=== PATIENT | female | born 1955 | race Caucasian/White ===

== ENCOUNTER 2019-02-06 06:23 | Inpatient (IN) ==
--- NOTE | 2018-12-29 12:49 | PAT Medication Instructions ---
Medication Instructions Date of Service December 29, 2018 Home Medications diclofenac sodium 50 mg PO BID ASK your surgeon for instructions diclofenac sodium 50 mg PO BID Other Notes If you have any questions please call us at [phone] or [phone] or [phone] or [phone]
--- NOTE | 2018-12-29 13:39 | Anesthesiology Consultation ---
Date of Service December 29, 2018 Assessment & Plan (1) Encounter for pre-operative examination: Chart Review Chart Review: Acceptable Risk for Surgery and Patient seen in Pre Admission Testing Teaching & Discussion Instructed NPO after midnight before surgery, except medications with 15 cc of water. Medication instructions provided according to the PAT guidelines. History Surgery Operation Date: 02/06/19 10:40 Proposed Procedures p Left Total Hip Replacement - Henry Ayala MD Height/Weight Height: 5 ft 6 in Weight: 80.9 kg Allergies Allergy/AdvReac Type Severity Reaction Status Date / Time Penicillins Allergy Severe SHORTNESS Unverified 12/26/18 12:43 OF BREATH/HIVES Medications Home Medications Medication Instructions Recorded Confirmed Last Taken diclofenac sodium 50 mg PO BID 12/26/18 12/26/18 Unknown Past Medical History Medical History Emphysema of lung Suggested on CXR 12/29/18 Osteoarthritis Exercise / Class Metabolic Activity II 4-5 Yardwork/Stairs/Walk up hill (NO CP OR SOB WITH 1 FOS) Past Family History Family History Father Family history of diabetes mellitus Past Surgical History Surgical History History of bilateral tubal ligation History of cholecystectomy History of colonoscopy History of open reduction and internal fixation (ORIF) procedure LEFT ANKLE History of total hip arthroplasty RIGHT Past Anesthesia History No Hx of Anesthesia Complications and No Family Hx of Anesthesia Complications History of PONV No Hx of PONV and No Hx of Motion Sickness Social History Smoking Status: Current every day smoker tobacco type: cigarettes Smoking cigarettes per day: 10 Do You Dip or Chew Tobacco: No Hx Alcohol Use: Yes Alcohol type: beer alcohol intake frequency: a few times a month Hx Substance Use: Yes substance use type: marijuana (VERY OCCASIONAL FOR PAIN, advised none within 24hrs of surgery) Review of Systems Pt denies any recent chest pain, shortness of breath, palpitations, cough, fever or URI. Physical Exam Vital Signs BP: 136/85 P: 82bpm SPO2: 94% RA T: 98.4 F R: 16 ENMT Mouth: no dental restorations, no chipped teeth and no loose teeth Thyromental Distance: < 3.5 Finger Breadths (2.5) Mallampati Class: IV Neck + shortened thyromental distance; neck extension not limited Respiratory normal respiratory effort Auscultation: lungs clear to auscultation bilaterally Cardiovascular Rate/Rhythm: regular rate and regular rhythm Heart Sounds: no murmur Vessels: no carotid bruit Extremities: no edema Testing Laboratory Results 12/29/18 13:43 12/29/18 13:43 PT 9.6 Seconds (9.0-12.0) 12/29/18 13:43 INR 0.9 (0.9-1.1) 12/29/18 13:43 APTT 24.9 Seconds (21.0-31.0) 12/29/18 13:43 Blood Type B Positive 12/29/18 13:43 Antibody Screen NEGATIVE 12/29/18 13:43 Electrocardiogram Date: 12/29/18 Findings: + NSR @ (74) Chest X-Ray Date: 12/29/18 IMPRESSION: 1. Findings suggest emphysema or other obstructive lung disease. 2. Bibasilar atelectasis or scarring.
--- NOTE | 2018-12-29 14:20 | XRay Report ---
XR chest Pre-admission PA/Lat CLINICAL HISTORY: 63 years-old Female presenting with preoperative assessment. TECHNIQUE: PA and lateral views of the chest were obtained. COMPARISON: 10/24/2012. FINDINGS: Atherosclerosis of the aortic arch. Cardiac silhouette borderline enlarged. Coarsening of lung markin gs. Lungs are hyperinflated. Bandlike opacities at the lung bases. No pleural effusion or pneumothora x. Osseous structures normal. Upper abdomen normal. IMPRESSION: 1. Findings suggest emphysema or other obstructive lung disease. 2. Bibasilar atelectasis or scarring. Electronically signed by: Omar Joaquin M.D. 12/29/2018 2:19 PM
[2018-12-29 15:39] LABS: Basophils % (auto) 0.9 %; Eosinophils # (auto) 0.28 K/uL (0-0.5); Eosinophils % (auto) 2.6 %; Hematocrit (blood only) 44.3 % (37-47); Hemoglobin 14.9 g/dL (12.0-16.0); Immature Granulocytes # (auto) 0.07 K/uL (0.00-0.02); Immature Granulocytes % (auto) 0.6 %; Lymphocytes # (auto) 3.18 K/uL (1.2-3.4); Lymphocytes % (auto) 29.1 %; Mean Corpuscular Hemoglobin 29.7 pg (25-34); Mean Corpuscular Hgb Conc 33.6 g/dL (32-36); Mean Corpuscular Volume 88.2 fL (80-100); Mean Platelet Volume 11.6 fL (7.4-10.4); Monocytes # (auto) 0.67 K/uL (0.11-0.59); Monocytes % (auto) 6.1 %; Neutrophils # (auto) 6.61 K/uL (1.4-6.5); Neutrophils % (auto) 60.7 %; Platelet Count 253 K/uL (130-400); RDW Coefficient of Variation 13.7 % (11.5-14.5); RDW Standard Deviation 44.3 fL (36.4-46.3); Red Blood Count 5.02 M/uL (4.2-5.4); White Blood Count 10.91 K/uL (4.8-10.8)
[2018-12-29 15:47] LABS: BUN Creatinine Ratio 15.8 (10-20); C Reactive Protein 0.71 mg/dl (0-0.29); Calcium 8.9 mg/dl (8.5-10.1); Creatinine Clr Calc Pharmacy 96.5 ml/min; Est GFR (African American) 110.1; Potassium 4.1 mmol/L (3.5-5.1)
[2018-12-29 15:53] LABS: INR 0.9 (0.9-1.1); Partial Thromboplastin Ratio 0.9; Partial Thromboplastin Time 24.9 Seconds (21.0-31.0); Prothrombin Time 9.6 Seconds (9.0-12.0)
--- NOTE | 2019-02-01 15:05 | History and Physical Report ---
DATE OF ADMISSION: 02/06/2019 CHIEF COMPLAINT: Left hip pain. HISTORY OF PRESENT ILLNESS: A 63-year-old white female well known to me from previous right hip replacement done 7 years ago. She has done well from this side. She now presents for treatment of her left hip. She has had left hip pain and thigh pain that radiates down into her knee. It started to bother her a couple of years ago, but it has gradually gotten worse particularly over the past year. She has developed a limited ability to walk any distance. She has difficulty going up and down stairs. She has nighttime pain. She takes NSAIDs as well as Tylenol with minimal relief. She now would like to have her left hip fixed. PAST MEDICAL HISTORY: Significant for: 1. Neck arthritis. 2. History of hepatitis in the past. PAST SURGICAL HISTORY: Right hip replacement on 09/18/2011. ALLERGIES: PENICILLIN. CURRENT MEDICATIONS: Include: 1. Tylenol. 2. Various anti-inflammatory medicines. SOCIAL HISTORY: A 63-year-old female. She is from [place]. Smokes a pack of cigarettes a day. Couple drinks of alcohol per week. FAMILY HISTORY: Noncontributory. REVIEW OF HISTORY: Negative for diabetes, neurologic problem, vascular problems, bleeding disorders. Denies any chest pain or shortness of breath. No history of DVT or PE. No bleeding problems. PHYSICAL EXAMINATION: GENERAL: Reveals a healthy, pleasant middle-aged female. Looks to be in pretty good health. HEENT: Benign. NECK: Supple, no lymphadenopathy. LUNGS: Clear to auscultation. HEART: Regular rate and rhythm. ABDOMEN: Soft, nontender, nondistended. EXTREMITIES: Grossly neurovascularly intact except as follows: Examination of the left hip reveals the patient walks with a slight bit of a limp. Leg lengths clinically appear pretty equal. She does have pain with any type of hip motion. I can internally rotate to neutral, external rotation to 25 degrees. No knee effusion. She is neurologically intact. Negative straight leg raise. X-RAYS: X-rays of left hip were reviewed. It shows advanced left hip DJD. She has complete loss of her joint space. She has got cystic changes on both sides of the hip. Right hip replacement looks to be in good position. ASSESSMENT: A 63-year-old white female, 7 years out from a right hip replacement, with advanced left hip degenerative joint disease. She would like to proceed with left hip replacement. PLAN: We will take her to the operating room and do a left total hip replacement. The risks and benefits of this procedure were explained to the patient including but not limited to DVT, PE, , infection, neurological injury, vascular injury, bleeding problem, pain, limited range of motion, stiffness, failure to relieve her symptoms, incomplete relief of symptoms, need for further surgery in the future, fracture, leg length inequality, nerve palsy, etc. The patient understands and desires to proceed. Informed consent was obtained. The patient does smoke and will likely need a nicotine patch in the hospital. She has a significant other who will stay with her during her recovery.
[~2019-02-06 06:23] MED LIST: ACETAMINOPHEN 500 MG TAB PO SCH; FAMOTIDINE 20 MG TAB PO SCH; GABAPENTIN 600 MG DOSE PO SCH; LR 500ML BOLUS, THEN 15ML/HR IV SCH; LR 60ML/HR IV SCH; METOCLOPRAMIDE HCL 10 MG TABLET PO SCH; SCOPOLAMINE 1.5 MG TDSY TD SCH; TRANEXAMIC ACID 1,000 MG **IV Pre-op IV SCH
[2019-02-06] MEDS ORDERED: BUPIVACAINE 0.5 % 5 MG/1 ML PF 10ML VIAL ONE (06:30)
--- NOTE | 2019-02-06 06:53 | History & Physical Bridge Note ---
Date of Service February 06, 2019 History & Physical Bridge Note I have examined the patient, reviewed the History & Physical and in the interval since the performance of the History & Physical I have noted the following changes of clinical significance: no changes noted
[2019-02-06] MEDS ORDERED: MIDAZOLAM HCL 1 MG/ML 2ML VIAL ONE (07:19)
[2019-02-06] MEDS ORDERED: PROPOFOL IV EMULSION 10 MG/ML 20 ML VIAL IV ONE ×2 (07:19→09:11)
[2019-02-06] MEDS ORDERED: MoRPHine SULFATE PF 1 MG/ML 10 ML AMP/VIAL ONE (07:20)
[2019-02-06] MEDS ORDERED: fentaNYL citrate 100 MCG/2 ML VIAL IV PRN (08:04)
[2019-02-06] MEDS ORDERED: ATROPINE SULFATE 0.1 MG/ML 10ML SYR IV PRN (08:04)
[2019-02-06] MEDS ORDERED: MoRPHine SULFATE 10 MG/ML CARP/VIAL IV PRN (08:04)
[2019-02-06] MEDS ORDERED: ONDANSETRON INJ 2 MG/ML 2 ML VIAL IV PRN ×2 (08:04→10:52)
[2019-02-06] MEDS ORDERED: ePHEDrine sulfate 50 MG/ML AMP IV PRN ×2 (08:04→10:52)
[2019-02-06] MEDS ORDERED: BACITRACIN INJ 50,000 UNIT VIAL ONE (08:28)
[2019-02-06] MEDS ORDERED: BUPIVACAINE/EPINEPHRINE 0.5% MPF 1:200,000 30 ML VIAL ONE (08:28)
[2019-02-06] MEDS ORDERED: fentaNYL citrate 100 MCG/2 ML VIAL ONE (08:52)
[2019-02-06] MEDS ORDERED: KETAMINE HCL INJ 50 MG/ML 10 ML VIAL ONE (09:12)
--- NOTE | 2019-02-06 10:17 | Post Operative Brief Note ---
PG Immediate Post Op with CF Date of Surgery February 06, 2019 Pre & Post Diagnosis Operation Date: 02/06/19 08:50 Pre-Op Diagnosis: Left Hip Advanced Degenerative Joint Disease Post-Op Diagnosis: Left Hip Advanced Degenerative Joint Disease Procedure Operation Date: 02/06/19 08:50 Actual Procedures p Left Total Hip Arthroplasty--Uncemented(Left) - Henry Ayala MD Surgeon Henry Ayala MD Vice President [employer] [facility], PAC Estimated Blood Loss 200 Findings Consistent with Post-Op Diagnosis Fluids 600 cc Specimens Specimen Description: A. Left femoral head. Drains Renner Catheter (A 16 [place] renner catheter was inserted by Amy Hendricks RN, without difficulty, clear yellow urine obtained, output to be monitored by Anesthesia.) Anesthesia Type Spinal MAC Disposition Accompanied Patient To Recovery: Yes Disposition: Recovery Room
--- NOTE | 2019-02-06 10:40 | Operative Report ---
DATE OF OPERATION: 02/06/2019 SURGEON: Henry Ayala MD WEATHERIZATION OPERATIONS MANAGER: ABDULKADIR Zamudio PREOPERATIVE DIAGNOSIS: Left hip degenerative joint disease. POSTOPERATIVE DIAGNOSIS: Left hip degenerative joint disease. PROCEDURE PERFORMED: Left uncemented ceramic on highly cross-linked polyethylene total hip arthroplasty. COMPLICATIONS: None. ESTIMATED BLOOD LOSS: 100 mL. FLUID REPLACEMENT: 600 mL of fluid replacement. ANESTHESIA: Spinal. DRAINS: None. SPECIMENS: Left femoral head sent for pathology. OPERATIVE INDICATIONS: The patient is a 63-year-old female who has had a long history of hip problems. She underwent a right hip replacement about 7 years ago and has done well from this. Over the past several years, she developed increased pain and discomfort in her left hip. She failed conservative care. X-rays show advanced hip arthritis. She elected to proceed with surgical treatment. FINDINGS: Operative findings revealed advanced left hip DJD. She had extensive grade 4 changes of the femoral head and acetabulum. Moderate size joint effusion. Some moderate synovitis. OPERATIVE IMPLANTS: Operative implants consisted of: 1. Biomet G7 size 50 mm acetabular shell. 2. A 6.5 cancellous acetabular screws, 1 at 35 mm length and 1 at 20 mm length. 3. An apex hole eliminator. 4. The highly cross-linked polyethylene liner with a 50 mm outer diameter and 32 mm inner diameter. 5. DePuy Corail size 9 KLA short neck femoral component. 6. A +5/32 mm ceramic articular ball. OPERATIVE PROCEDURE: The patient was taken to the operating room, identified and placed on the operating table in supine position. All contact areas were appropriately padded. IV antibiotics provided by anesthesia team. A spinal anesthetic had been implemented in the holding area. Arce catheter was placed in sterile fashion. The patient was then placed in the right lateral decubitus position. An axillary roll was placed. Stlberg hip positioner was used for positioning. The left hip and leg were then prepped and draped in usual sterile fashion. A posterolateral approach to the left hip was then performed through a curvilinear incision centered over the greater trochanter. Sharp dissection was carried through subcutaneous tissues down to the level of the IT band and gluteal fascia. The IT band and gluteal fascia were incised longitudinally in line with skin incision. The underlying greater trochanteric bursa was excised. The piriformis and external rotators were then tagged and taken off the posterior aspect of the hip joint capsule. Great care was taken throughout the procedure to protect the sciatic nerve at all times. Posterior capsulotomy was then performed leaving a large flap for later repair. Hip was internally rotated and dislocated. Femoral neck osteotomy cut was made with the final cut about 10 mm above the lesser trochanter. Femoral head was removed and sent for pathology. The femur was retracted anteriorly. Attention was then drawn to the acetabulum. The acetabulum labrum was excised. The pulvinar fat was excised. Sequential reaming of the acetabulum was then performed beginning with a size 43 and progressing up to 49. A 50 mm Biomet G7 acetabular shell was then placed in about 40 degrees of lateral opening and 20 degrees of anteversion. It was fixed with two 6.5 cancellous acetabular screws. A trial liner was placed. Some anterior osteophytes removed. Attention was then drawn to the femur. The proximal femur was entered with Bitmenu cutter followed by canal finder. I broached beginning with a size 8 and progressed to a 9. She had pretty good fit at a 9. We used a calcar reamer to smooth off the calcar. I then trialed the hip and the short neck seemed to be most appropriate. She had a fairly short neck with a valgus alignment preoperatively. We trialed the hip and the hip was fully stable in full extension and external rotation and flexion to 90 degrees, internal rotation to over 60 degrees. We did increase our offset slightly but took great care to try and avoid any increase in leg length. We elected to place these implants. All trial implants were removed. An apex hole eliminator was placed. Highly cross-linked polyethylene liner was placed. A DePuy Corail size 9 KLA short neck femoral stem was impacted in position. A +5/32 mm ceramic articular ball was placed. Hip was located and once again found to be stable. Attention was then drawn toward closing. The wound was irrigated with copious amounts of pulsatile lavage solution. I did inject locally with 60 mL of 0.5% Marcaine with epinephrine. Posterior capsule and external rotators were then repaired through drill holes in the posterior trochanter with #2 Ti-Cron suture. The IT band and gluteal fascia were then closed with #1 PDS suture in running fashion. Subcutaneous tissue was then closed in 2 layers with deep layer #1 Vicryl suture and subcutaneous tissues with 2-0 Dexon suture in a buried interrupted fashion. Skin was closed with skin salvador. Leg was then cleaned, dried and a sterile dressing of Xeroform, 4 x 4, sterile ABD pad and foam tape was applied. The patient then transferred to the recovery room in stable condition. The patient tolerated the procedure well with no complication. All needle and sponge counts were correct at the end of the operation. I attest to the content of the Intraoperative Record and any orders documented therein. Any exception s are noted below.
[2019-02-06] MEDS ORDERED: NALBUPHINE HCL INJ 10 MG/ML AMP IV PRN (10:52)
[2019-02-06] MEDS ORDERED: NALOXONE HCL 0.08 MG in SYRINGE 1.8 ML IV PRN (10:52)
[2019-02-06] MEDS ORDERED: LACTATED RINGER'S 500 ML IV PRN (10:52)
[2019-02-06] MEDS ORDERED: NALOXONE HCL 1 MG in SODIUM CHLORIDE 0.9% 1000ML 1,000 ML IV PRN (10:52)
[2019-02-06] MEDS ORDERED: MoRPHine SULFATE PF 1 MG/ML 10 ML AMP/VIAL INT SPINAL ONE (10:52)
[2019-02-06] MEDS ORDERED: DiphenhydrAMINE HCL 50 MG/ML VIAL IV PRN (10:52)
[2019-02-06] MEDS ORDERED: NALOXONE HCL 0.4 MG/1 ML VIAL/CARP IV PRN ×2 (10:52→11:25)
--- NOTE | 2019-02-06 10:52 | Anesthesiology Progress Note ---
Date of Service February 06, 2019 Anesthesia Post Procedure Vital Signs Vital Signs: Temp Pulse Pulse Resp BP Pulse Ox 02/06/19 10:45 81 14 118/70 95 02/06/19 10:35 85 14 136/82 97 02/06/19 10:25 87 14 149/92 H 99 02/06/19 10:18 36.6 C 96 H 14 146/85 H 96 02/06/19 06:45 37.1 C 85 20 144/88 H 94 Pain Intensity Left Hip: Pain Intensity: 0 Transfer of Care Handoff Completed per policy Notes Mental Status: alert / awake / arousable and participated in evaluation Patient Amnestic to Procedure: Yes Nausea / Vomiting: adequately controlled Pain: adequately controlled Airway Patency, RR, SpO2: stable & adequate BP & HR: stable & adequate Hydration State: stable & adequate Neuraxial Anesthesia: was administered and sensory block is resolving Anesthetic Complications: no major complications apparent and Pt Satisfied with anesthetic care
[2019-02-06] MEDS ORDERED: DC INTRASPINAL MORPHINE SCH (11:00)
[2019-02-06] MEDS ORDERED: SODIUM CHLORIDE 0.9% 1000ML 1,000 ML IV SCH (11:00)
[2019-02-06] MEDS ORDERED: NO NARCOTICS OR SEDATIVES SCH (11:00)
--- NOTE | 2019-02-06 11:02 | XRay Report ---
XR hip 1V LT w pelvis CLINICAL HISTORY: Postop hip arthroplasty COMPARISON: 11/21/2012 DISCUSSION: There is no change in the appearance of a total right hip arthroplasty. Now evident is a total left hip arthroplasty. The acetabular and femoral components appear well seated. There are no a cute fractures. There is gas present the soft tissues consistent with recent surgery. There are overl mell skin salvador. IMPRESSION: Postsurgical changes of a total left hip arthroplasty. Electronically signed by: Simon Tam M.D. 02/06/2019 11:01 AM
[2019-02-06] MEDS ORDERED: ALUMINUM/MAGNESIUM SUSP 30 ML UDC PO PRN (11:25)
[2019-02-06] MEDS ORDERED: MAGNESIUM HYDROXIDE SUSP 30 ML UDC PO PRN (11:25)
[2019-02-06] MEDS ORDERED: METOCLOPRAMIDE HCL INJ 5 MG/ML 2 ML VIAL IV PRN (11:25)
[2019-02-06] MEDS ORDERED: BISACODYL 10 MG SUPP PR PRN (11:25)
--- NOTE | 2019-02-06 12:51 | Progress Note ---
DATE: 02/06/2019 SUBJECTIVE: A 63-year-old female postop from a left hip replacement. She is doing well. Not having any pain yet. Just getting the function back in her legs. No chest pain or shortness of breath. Not feeling dizzy or lightheaded. OBJECTIVE: VITAL SIGNS: Temperature 36.4. Vital signs stable. GENERAL: Shows a pleasant, middle-aged female. She is sitting up in bed and talking to a friend. LUNGS: Clear to auscultation. HEART: Regular rate and rhythm. ABDOMEN: Soft, nontender, nondistended. EXTREMITIES: Grossly neurovascularly intact except as follows: Examination of left lower extremity reveals the leg lengths to be equal. Hip is located. Dressing is clean, dry and intact. She can dorsiflex and plantarflex her foot appropriately. She is neurologically intact. X-RAYS: X-rays of the left hip from recovery room reviewed. It shows left uncemented total hip replacement. Components looked to be in good position. No signs of problems. ASSESSMENT: A 63-year-old female postop from a left hip replacement, doing well. Pain is controlled. Hip is located. She is neurologically intact. PLAN: 1. DVT prophylaxis including thigh-high TEDs, SCDs, and aspirin twice a day. 2. PT/OT. Weight bear as tolerated. Left total hip protocol. 3. Pain control, doing well with current pain regimen. 4. IV antibiotics x24 hours. 5. Disposition: Plan to discharge to home likely with home health once adequately recovered.
[2019-02-06] MEDS: ACETAMINOPHEN 500 MG TAB PO SCH ×2 (13:52→22:02)
[2019-02-06] MEDS: SODIUM CHLORIDE 0.9% 1000ML 1,000 ML IV SCH ×2 (13:53→22:02)
[2019-02-06] MEDS: CEFAZOLIN 1000MG 1,000 MG/7.5 ML SYR IV SCH ×2 (15:29→22:02)
[2019-02-06] MEDS: CHECK SCOPOLAMINE PATCH PLACEMENT SCH ×2 (15:29→23:01)
[2019-02-06] MEDS ORDERED: TRANEXAMIC ACID 1,000 MG in 0.9 % SODIUM CHLORIDE 100 ML IV SCH (16:18)
[2019-02-06] MEDS: KETOROLAC 30 MG/ML VIAL IV PRN (17:13)
[2019-02-06] MEDS: ASCORBIC ACID 500 MG TAB PO SCH (18:42)
[2019-02-06] MEDS: FERROUS GLUCONATE 324 MG TAB PO SCH (18:42)
[2019-02-06] MEDS: ASPIRIN 81 MG ECTAB PO SCH (19:53)
[2019-02-06] MEDS: SENNA 8.6 MG TAB PO SCH (19:53)
[2019-02-06] MEDS: DOCUSATE SODIUM 100 MG CAP PO SCH (19:53)
[2019-02-07] MEDS: KETOROLAC 30 MG/ML VIAL IV PRN (03:16)
[2019-02-07] MEDS ORDERED: ONDANSETRON INJ 2 MG/ML 2 ML VIAL IV PRN (04:52)
[2019-02-07] MEDS ORDERED: HYDROmorphone INJ 0.5 MG/0.5 ML SYR IV PRN (04:52)
[2019-02-07] MEDS: ACETAMINOPHEN 500 MG TAB PO SCH ×3 (05:24→21:17)
[2019-02-07 06:17] LABS: Basophils # (auto) 0.04 K/uL (0-0.2); Basophils % (auto) 0.4 %; Eosinophils # (auto) 0.09 K/uL (0-0.5); Eosinophils % (auto) 0.8 %; Hematocrit (blood only) 35.4 % (37-47); Hemoglobin 11.5 g/dL (12.0-16.0); Immature Granulocytes # (auto) 0.05 K/uL (0.00-0.02); Immature Granulocytes % (auto) 0.5 %; Lymphocytes # (auto) 1.79 K/uL (1.2-3.4); Lymphocytes % (auto) 16.4 %; Mean Corpuscular Hemoglobin 28.8 pg (25-34); Mean Corpuscular Hgb Conc 32.5 g/dL (32-36); Mean Corpuscular Volume 88.7 fL (80-100); Mean Platelet Volume 11.4 fL (7.4-10.4); Monocytes # (auto) 1.21 K/uL (0.11-0.59); Monocytes % (auto) 11.1 %; Neutrophils # (auto) 7.74 K/uL (1.4-6.5); Neutrophils % (auto) 70.8 %; Platelet Count 206 K/uL (130-400); RDW Coefficient of Variation 13.3 % (11.5-14.5); RDW Standard Deviation 43.3 fL (36.4-46.3); Red Blood Count 3.99 M/uL (4.2-5.4); White Blood Count 10.92 K/uL (4.8-10.8)
[2019-02-07 06:58] LABS: BUN Creatinine Ratio 14.7 (10-20); Calcium 7.8 mg/dl (8.5-10.1); Creatinine Clr Calc Pharmacy 101.7 ml/min; Est GFR (African American) 110.6; Est GFR (Non-African American) 95.5; Potassium 3.9 mmol/L (3.5-5.1)
--- NOTE | 2019-02-07 08:15 | Progress Note ---
DATE: 02/07/2019 SUBJECTIVE: A 63-year-old white female postop day 1 from left total hip replacement. She is doing pretty well. Pain is controlled. No chest pain or shortness of breath. Not feeling dizzy or lightheaded. OBJECTIVE: VITAL SIGNS: Temperature 37.2. Vital signs stable. GENERAL: Shows a pleasant, middle-aged female. She is lying in bed, looks pretty comfortable. EXTREMITIES: Examination of the left hip and leg reveals leg lengths to be equal. Hip is located. Dressing is clean, dry and intact. Thigh is soft and supple. She is neurologically intact. LABORATORY DATA: Hemoglobin is 11.5, hematocrit 35.4. Electrolytes are stable. ASSESSMENT: A 63-year-old female postoperative day 1 from left hip replacement, doing pretty well. Pain is controlled. Hip is located. She is neurologically intact. PLAN: 1. DVT prophylaxis including thigh-high TEDs, SCDs, and aspirin twice a day. 2. PT/OT. Weight bear as tolerated. Left total hip protocol. 3. Pain control, doing well with current pain regimen. 4. Disposition: Plan to discharge to home with some home health once adequately recovered.
[2019-02-07] MEDS: FERROUS GLUCONATE 324 MG TAB PO SCH ×2 (08:34→17:51)
[2019-02-07] MEDS: ASCORBIC ACID 500 MG TAB PO SCH ×2 (08:35→17:51)
[2019-02-07] MEDS: DOCUSATE SODIUM 100 MG CAP PO SCH ×2 (08:35→21:18)
[2019-02-07] MEDS: ASPIRIN 81 MG ECTAB PO SCH ×2 (08:35→21:17)
[2019-02-07] MEDS: MULTIVITAMIN TAB PO SCH (08:36)
[2019-02-07] MEDS: NICOTINE 14 MG/24 HR PATCH TD SCH (08:36)
[2019-02-07] MEDS: KETOROLAC 30 MG/ML VIAL IV SCH ×3 (10:16→21:18)
[2019-02-07] MEDS: TRAMADOL HCL 50 MG TABLET PO PRN ×2 (14:14→19:33)
[2019-02-07] MEDS: SENNA 8.6 MG TAB PO SCH (21:18)
[2019-02-08] MEDS: TRAMADOL HCL 50 MG TABLET PO PRN (03:19)
[2019-02-08] MEDS: KETOROLAC 30 MG/ML VIAL IV SCH ×2 (03:20→09:27)
[2019-02-08] MEDS: ACETAMINOPHEN 500 MG TAB PO SCH (05:31)
--- NOTE | 2019-02-08 08:17 | Progress Note ---
DATE: 02/08/2019 SUBJECTIVE: A 63-year-old white female postop day 2 from a left hip replacement. She is doing pretty well. Pain is controlled. No chest pain or shortness of breath. Not feeling dizzy or lightheaded. OBJECTIVE: VITAL SIGNS: Temperature 36.7. Vital signs stable. GENERAL: Shows a pleasant, middle-aged female. She is lying in bed, looks comfortable. EXTREMITIES: Examination of the left hip reveals the incision to be clean, dry and intact. Leg lengths were equal. Hip is located. She is neurologically intact. ASSESSMENT: A 63-year-old white female postoperative day 2 from a left hip replacement, doing well. Pain is controlled. Hip is located. She is neurologically intact. PLAN: 1. DVT prophylaxis including thigh-high TEDs, SCDs, and aspirin twice a day. 2. PT/OT. Weight bear as tolerated. Left total hip protocol. 3. Pain control, doing well with current pain regimen. 4. Disposition: Plan to discharge to home with some home health later today.
[2019-02-08] MEDS: FERROUS GLUCONATE 324 MG TAB PO SCH (08:45)
[2019-02-08] MEDS: MULTIVITAMIN TAB PO SCH (08:45)
[2019-02-08] MEDS: ASPIRIN 81 MG ECTAB PO SCH (08:46)
[2019-02-08] MEDS: ASCORBIC ACID 500 MG TAB PO SCH (08:46)
[2019-02-08] MEDS: DOCUSATE SODIUM 100 MG CAP PO SCH (08:46)
[2019-02-08] MEDS: NICOTINE 14 MG/24 HR PATCH TD SCH (08:46)
--- NOTE | 2019-02-11 12:57 | Discharge Summary ---
ADMITTING PHYSICIAN AND SURGEON: Dr. Henry Ayala. ADMITTING DIAGNOSIS: Left hip degenerative joint disease. SURGERY PERFORMED: Left total hip arthroplasty. SECONDARY DIAGNOSES: Neck arthritis and history of hepatitis. CONSULTS: None obtained. HISTORY AND PHYSICAL EXAMINATION: Well documented in the patient's chart. HOSPITAL COURSE: The patient was admitted on 02/06/2019 underwent a total hip arthroplasty, tolerated the procedure well. There were no complications. She was transferred to the PACU postoperatively and later to the orthopedic floor for further care. She was given Ancef for antibiotic prophylaxis, MARYLU stockings, SCDs and aspirin for DVT prophylaxis. Hemoglobin, hematocrit and vital signs were monitored during her hospital stay and remained stable. She did not require any blood transfusions. There were no complications. On postoperative day 2, she was tolerating a regular diet, pain was controlled with oral pain medicine. She was participating in physical therapy. On postop day 2, she was discharged home, set up with home health services. She was given printed discharge instructions as well as new prescriptions for extra strength Tylenol, aspirin and tramadol. Continue her home medicines. Continue physical therapy, weightbearing as tolerated, MARYLU stockings, total hip precautions. Follow up approximately 2 weeks postop or sooner if there are any problems or concerns.
== END 2019-02-08 10:22 | disposition home health service (06) | DRG 470 ==
LOC: ASU 06:23 → 3E 10:21
DX: Z83.3 Family history of diabetes mellitus; Z88.0 Allergy status to penicillin; M16.12 Unilateral primary osteoarthritis, left hip; J43.9 Emphysema, unspecified; Z96.641 Presence of right artificial hip joint; F17.210 Nicotine dependence, cigarettes, uncomplicated